=== PATIENT | female | born 1975 | race African-American/Black ===

== ENCOUNTER 2018-03-24 17:39 | Emergency (ER) | payer SELFPAY ==
[~2018-03-24] VITALS: Ht 165.1 cm; Wt 80.0 kg
[2018-03-24] MEDS ORDERED: PENICILLIN G BENZATHINE 1,200,000 UNITS/2ML SYR IM ONE (19:30)
[2018-03-24 19:43] VITALS: BP 145/88
== END 2018-03-24 22:00 | disposition home or self-care (01) ==
LOC: ER 21:47
DX: J02.9 Acute pharyngitis, unspecified (principal); I10 Essential (primary) hypertension; F12.10 Cannabis abuse, uncomplicated
CPT/HCPCS: 96372; 99283; J0561

== ENCOUNTER 2018-04-16 16:48 | Emergency (ER) | payer SELFPAY ==
[~2018-04-16] VITALS: Ht 167.6 cm; Wt 80.0 kg
[2018-04-16] MEDS ORDERED: MORPHINE SULFATE 4 MG/ML CPJ (NOT FOR IM USE) IV ONE (22:00)
[2018-04-16 23:03] LABS: CLARITY URINE CLEAR (CLEAR); COLOR URINE YELLOW (YELLOW); KETONES URINE NEGATIVE (NEGATIVE); LEUKOCYTE ESTERASE URINE NEGATIVE (NEGATIVE); NITRITE URINE NEGATIVE (NEGATIVE); OCCULT BLOOD URINE NEGATIVE (NEGATIVE); PROTEIN URINE NEGATIVE (NEGATIVE); SPECIFIC GRAVITY URINE 1.023 (1.005-1.030)
[2018-04-16 23:52] LABS: BASOPHILS % 0.8 % (0.0-2.0); EOSINOPHILS % 1.3 % (0.0-5.0); HEMATOCRIT. 35.2 % (36.0-48.0); HEMOGLOBIN. 11.3 g/dL (12.0-16.0); LYMPHOCYTES % 33.4 % (20.0-50.0); MEAN CORPUSCULAR HEMOGLOBIN 23.8 pg (28.0-32.0); MEAN CORPUSCULAR VOLUME 74.5 fL (81.0-99.0); MEAN PLATELET VOLUME 9.7 fl (7.4-10.4); MONOCYTES % 9.8 % (2.0-8.0); NEUTROPHILS % 54.7 % (40.0-76.0); PLATELET 198 x1000/uL (130-400); RED BLOOD CELL COUNT 4.73 mill/uL (4.2-5.4); RED CELL DISTRIBUTION WIDTH 15.2 % (11.6-14.6)
[2018-04-16 23:57] LABS: PROTHROMBIN TIME 10.4 sec (9.1-11.1)
[2018-04-16 23:58] LABS: CHLORIDE 107 mEq/L (98-107)
[2018-04-17] MEDS ORDERED: OXYCODONE HCL 5MG TABLET PO ONE (03:00)
[2018-04-17] MEDS ORDERED: IOHEXOL-300 100 ML BOTTLE ONE (03:16)
[2018-04-17 03:45] VITALS: BP 168/116
== END 2018-04-17 04:04 | disposition home or self-care (01) ==
LOC: ER 16:48
DX: K57.92 Diverticulitis of intestine, part unspecified, without perforation or abscess without bleeding (principal); R07.81 Pleurodynia; D50.9 Iron deficiency anemia, unspecified; N83.209 Unspecified ovarian cyst, unspecified side; N20.0 Calculus of kidney; K76.0 Fatty (change of) liver, not elsewhere classified; K64.4 Residual hemorrhoidal skin tags; I10 Essential (primary) hypertension; F12.10 Cannabis abuse, uncomplicated; F17.200 Nicotine dependence, unspecified, uncomplicated; W10.8XXA Fall (on) (from) other stairs and steps, initial encounter; Y93.89 Activity, other specified; Y92.89 Other specified places as the place of occurrence of the external cause; Y99.8 Other external cause status
CPT/HCPCS: 36415; 74177; 80053; 81003; 81025; 83690; 85025; 85610; 86850; 86900; 86901; 96374; 99285; J2270; Q9967